=== PATIENT | female | born 1975 | race Caucasian/White ===

== ENCOUNTER → 2024-07-14 08:33 | Outpatient (REF) | payer OTHER, SELFPAY | LOC: RCS 08:33 | PROVIDERS: ATTENDING PHYSICIAN Surgery Plastic and Reconstructive Surgery; FAMILY PHYSICIAN Nurse Practitioner | DX: Z01.818 Encounter for other preprocedural examination (principal) | CPT/HCPCS: 93005 ==

== ENCOUNTER → 2024-09-05 06:17 | Day surgery (SDC) | payer OTHER, SELFPAY ==
[2024-09-05 12:47] VITALS: BMI 25.6
[2024-09-05 12:49] VITALS: BMI 25.6
[2024-09-05 12:55] VITALS: BP 117/62
[2024-09-05] MEDS: TYLENOL 1000 MG PO (13:09)
[2024-09-05 15:45] VITALS: BP 99/54
[2024-09-05 16:00] VITALS: BP 106/64
[2024-09-05 16:15] VITALS: BP 105/52
--- NOTE | 2024-09-05 16:20 | W.IMMPOSTOP ---
Surgical Immed Post Op Note
-
Primary Surgeon: CALIXTO Macedo MD
Assisting Surgeon:
Pre-op Diagnosis: Right neck/facial mass
Post-op Diagnosis: Same
Procedure Performed: Excision of right facial mass 5x4cm, complex closure 3.5 cm
Anesthesia Type: MAC
Specimen / Cultures: Right facial mass
Estimated Blood Loss: 3cc
Complications: None
Operative Findings: Well circumscribed lipomatous mass
--- NOTE | 2024-09-05 16:21 | OR.RPT ---
Operative Report
Operative Report
Date of surgery: 09/05/2024
Surgeon: CALIXTO Macedo MD
Preoperative diagnosis: Right facial mass
Postoperative diagnosis: Same
Procedure:
1. Excision of right facial mass 5 x 4 cm
2. Complex closure, right face, 3.5 cm
anesthesia: MAC
EBL: 3 cc
Specimens: Right facial mass
Indication for procedure: Patient is a 49-year-old female with a history of a slow-growing right facial mass. She had prior CT scan imaging showing a benign process. The mass had reached a size where it became problematic for her and she desired
excision for diagnosis and curative intent. Discussion was had about the location of the mass and the fact that it was in the deeper fascial tissues near the facial nerves. As such it was appropriate to do this in a controlled environment of the
operating room. Discussion was had about the potential complications including transient or permanent nerve damage, hematoma, seroma, recurrence, infection. Abnormal scarring is always a possibility. Every effort will be made to minimize a scar
burden. Patient understood and consented accordingly.
procedure in detail: Patient was identified preoperatively and the surgical site was confirmed to be the right lower face. The mass was delineated with confirmation by the patient. A linear incision was drawn and also shown to the patient for
confirmation. Consents were confirmed and all questions were answered. Patient was taken back to the operative room placed supine on the table. Anesthesia was performed by the provider via MAC and nasal cannula. Timeout for patient safety was
performed was confirmed preoperative antibiotics administered and bilateral SCDs were placed. Patient was prepped with Betadine and draped in the usual sterile fashion. Procedure began with the injection 1% lidocaine with epinephrine, 3 cc in the
proposed incision. 15 blade was used to incise the skin and scissors were used to spread into the deep tissues below this mass. Bovie electrocautery was used sparingly for hemostasis. With adequate retraction, blunt dissection continued deep to
the area of the mass. It was very clearly defined as an encapsulated lipomatous mass. Additional blunt dissection was performed to free the mass from the surrounding tissues. The mass was removed and measured to be approximately 5 x 4 cm. It was
sent for pathology accordingly. The wound bed was examined and it was confirmed that hemostasis was ensured achieved. A 3.5 complex closure was then performed with multiple layers including reapproximation of the the SMAS/platysma junction with
5-0 Vicryl. Followed by deep dermal interrupted and a running Monocryl subcuticular. Steri-Strips were placed over the incision. Patient tolerated the procedure well, was performed without complication, all counts were correct at the end the
case.
[2024-09-05 16:30] VITALS: BP 98/54
== END ==
LOC: SDS 06:17
PROVIDERS: ATTENDING PHYSICIAN Surgery Plastic and Reconstructive Surgery
DX: D17.0 Benign lipomatous neoplasm of skin and subcutaneous tissue of head, face and neck (principal)
CPT/HCPCS: 21012; 11406; 88304